=== PATIENT | female | born 1935 | race Native Hawaiian/Other Pacific Islander ===

== ENCOUNTER → 2022-02-05 | Outpatient (CLI) | payer OTHER ==
[2022-02-10 14:09] LABS: M-SPIKE, % Not Observed % (Not Observed); PROTEIN,TOTAL,URINE <4.0 mg/dL (Not Estab.)
== END | disposition home or self-care (01) ==
LOC: LAB SHORT 11:39 → LAB 11:39 → LAB FUT 01-26 14:45
PROVIDERS: Internal Medicine Nephrology
DX: N18.32 Chronic kidney disease, stage 3b (principal)
CPT/HCPCS: 84156; 84166

== ENCOUNTER 2023-02-02 11:15 | Inpatient (IN) | payer OTHER ==
[~2023-02-02] VITALS: Ht 152.4 cm; Wt 55.3 kg
[2023-02-02] MEDS ORDERED: AMLODIPINE BESYL5 MG PO (11:38)
[2023-02-02] MEDS ORDERED: CARVEDILOL3.125 MG PO (11:38)
[2023-02-02] MEDS ORDERED: ATORVASTATIN 10MG (11:38)
[2023-02-02 19:16] VITALS: BP 161/58
--- NOTE | 2023-02-02 23:09 | NUR ---
PT stated that right arm was painful, MEDICAL REPRESENTATIVE notified the RN.
[2023-02-03 03:18] VITALS: BP 147/71
--- NOTE | 2023-02-03 05:58 | NUR ---
SHIFT SUMMARY A/OX4, 1P ASSIST TO BSC. SPLINT TO R. WRIST. C/O PAIN TO THE AREA, MEDICATED WITH 50MCG FENTANYL. NPO SINCE MIDNIGHT. VSS, NO ACUTE CHANGES AT THIS TIME. BED IN LOWEST POSITION WITH CALL LIGHT IN REACH. WILL CONTINUE TO MONITOR AND REPORT TO ONCOMING RN.
[2023-02-03 07:16] VITALS: BP 151/59
[2023-02-03 08:45] LABS: Albumin, Blood 3.3 g/dL (3.4-5.0); Bilirubin, Total 0.6 mg/dL (0.1-1.0); Calcium, Blood 9.4 mg/dL (8.5-10.1); Creatinine, Blood 1.2 mg/dL (0.40-1.00); Globulin, Blood 3.2 g/dL (2.2-4.0); Potassium, Blood 4.1 mmol/L (3.5-5.5); Total Protein, Blood 6.5 g/dL (6.4-8.2)
[2023-02-03 15:17] VITALS: BP 159/57
--- NOTE | 2023-02-03 17:46 | NUR ---
SHIFT SUMMARY NO ACUTE CHANGES THIS SHIFT. PATIENT SURGERY DELAYED UNTIL TOMORROW D/T OR AVAILABILTY. PAIN MANAGED WELL PER EMAR. SPLINT TO R ARM REMAINS IN PLACE, C/D/I. PATIENT WORKED WITH PHYSICAL THERAPY, UP TO CHAIR, 1P MIN ASSIST WITH PLATFORM WALKER. TOLERATING PO DIET WELL, DENIES N/V. CALLS APPROPRIATERLY, IN REACH. WILL REPORT TO ONCOMING RN AT 1900.
[2023-02-03 19:13] VITALS: BP 157/66
[2023-02-04] VITALS (16 sets, daily range): BP systolic 104–170; BP diastolic 65–87
--- NOTE | 2023-02-04 04:24 | NUR ---
SUMMARY NO ACUTE EVENTS THIS SHIFT, PATIENT IS AOX4, AND NPO STATUS FOR ORIF OF R RADIUS. SPLINT TO R ARM IS C/D/I. ABLE TO MOVE ALL EXT'S. MEDICATED FOR PAIN AND MANAGED WELL. ICE PACK ON R ARM ELEVATED ON PILLOWS. PATIENT IS A SBA ASSIST TO BSC, VOIDING WELL. IV FLUIDS INFUSING. PATIENT CALLS APPROPRIATELY. BED IN LOWEST POSITION, CALL LIGHT IN REACH, VSS. WILL REPORT TO DAY RN.
--- NOTE | 2023-02-04 10:01 | NUR ---
PT TAKEN TO DAY SURGERY AT THIS TIME. PT ALERT AND ORIENTED UPON LEAVING THE ROOM. DAY SURGERY RN NOTIFIED THAT PT WILL NEED HER PRE OP WASH, PERIDEX AND NOSIN. SHE WAS ALSO NOTIFIED THAT IV INFILTRATED AND PT WILL NEED A NEW IV. PHONE NUMBER FOR PATIENT'S DAUGHTER WAS PROVIDED FOR DAY SURGERY. MESSAGE LEFT FOR PATIENT'S DAUGHTER NOTIFYING HER THAT THE PATIENT LEFT FOR SURGERY.
--- NOTE | 2023-02-04 14:30 | NUR ---
PT RETURNED TO THE ROOM FROM PACU AT 1400. PT DROWSY BUT ORIENTED. PT DENIES PAIN AND RESTING COMFORTABLE. VSS.
--- NOTE | 2023-02-04 17:39 | NUR ---
SHIFT SUMMARY PT IS POD#0 FROM R RADIUS ORIF. PT REPORTS PAIN BUT FALLS ASLEEP EVIDENCED BY LIGHT SNORING WHEN SHE IS LEFT TO REST. R ARM ELEVATED ON PILLOWS AND ICE IN PLACE. R HAND IS SWOLLEN POST OP BUT PT APPEARS TO HAVE BETTER MOBILITY OF FINGERS AFTER SURGERY. CAP REFIL WNL. STILL UNABLE TO ASSESS PULSES R/T SPLINT PLACEMENT.
[2023-02-05 01:21] VITALS: BP 129/83
[2023-02-05 05:24] VITALS: BP 143/74
--- NOTE | 2023-02-05 07:21 | NUR ---
summary twice this shift pt slept solid and woke confused not to being in hospital, but tangled all of her cords,unclipped call light from gown and tangle it in phone and iv cords accidentally dislodging 2 ivs.pt calling out saying she was "stuck" denied trying to get out of bed, but still called being in bed stating she was restless? pt with no known hx dementia,however reported to me full sensation to fingers this am, now reports fingers as "numb,although can wiggle fingers slowly,refill wnl and warm.when asked directly if she can feel fingers pt states she can feel them, but returns to "numb" ice was kept to arm last night with decrease in swelling to hand and report of improved pain control. pt ambulatory with assist to bsc for void without diff.
[2023-02-05 07:22] VITALS: BP 156/74
[2023-02-05 08:48] LABS: Mean Corpuscular HGB 31.3 pg (26.0-34.0); Mean Corpuscular HGB Conc 35.1 g/dL (31.5-36.5); Mean Corpuscular Volume 89 fL (80-100); Mean Platelet Volume 10.3 fL (9.1-12.4); Platelet Count 259 K/mm3 (150-400); RDW Coefficient Variation 12.2 % (11.7-14.2); RDW Standard Deviation 40.1 fL (35.1-46.3); Red Blood Cell Count 4.16 M/mm3 (3.80-5.20); White Blood Cell Count 17.66 K/mm3 (4.00-11.30)
--- NOTE | 2023-02-05 11:58 | NUR ---
AMBULATING DOWN THE [place] W/ PHYS. THERAPY.
[2023-02-05 14:39] VITALS: BP 147/76
--- NOTE | 2023-02-05 17:08 | NUR ---
SUMMARY POD 1 R RADIAL ORIF, REPORTS HAVING MINIMAL PAIN ON R ARM, AMBULATING WITH STANDBY ASSIST AND PLATFORM WALKER, PT NEEDS CONSTANT VERBAL CUES FOR SAFETY, PT/OT EVAL TODAY, REC. HOME W/ HOME HEALTH, PLEASAND AND COOPERATIVE, USING CALL LIGHT APPROPRIATELY, NO ACUTE CHANGES THIS SHIFT.
[2023-02-05 19:38] VITALS: BP 162/62
[2023-02-06 05:05] LABS: Hematocrit 30.6 % (33.0-51.0); Hemoglobin 10.5 g/dL (11.5-16.0); Mean Corpuscular HGB 31.4 pg (26.0-34.0); Mean Corpuscular HGB Conc 34.3 g/dL (31.5-36.5); Mean Corpuscular Volume 92 fL (80-100); Mean Platelet Volume 10.6 fL (9.1-12.4); Platelet Count 218 K/mm3 (150-400); RDW Coefficient Variation 12.8 % (11.7-14.2); RDW Standard Deviation 42.4 fL (35.1-46.3); Red Blood Cell Count 3.34 M/mm3 (3.80-5.20); White Blood Cell Count 10.14 K/mm3 (4.00-11.30)
[2023-02-06 05:22] VITALS: BP 159/67
[2023-02-06 07:09] VITALS: BP 162/61
--- NOTE | 2023-02-06 07:46 | NUR ---
SHIFT SUMMARY AOX4 T/O NIGHT. VSS. POD 2-R RADIAL ORIF. SPLINT & PILI WRAP IN PLACE. PT ABLE TO SLIGHTLY WIGGLE R HAND FINGERS, R HAND c DEPENDENT & NONPITTING EDEMA, PER DAY SHIFT ON PREVIOUS DAY SWELLING HAS DECREASED. CAP REFILL <3 SEC. UNABLE TO FEEL PULSE R/T SPLINT. PT REPORTED 2-3/10 PAIN IN R WRIST, DENIED NEED FOR PAIN MEDS T/O NIGHT, USED ICE FOR PAIN RELIEF. NON-WT BEARING R ARM, 1P ASSIST c TRANSFER c PLATFORM WALKER. CALL LIGHT & BED ALARM IN PLACE FOR SAFETY.
[2023-02-06 14:46] VITALS: BP 161/71
--- NOTE | 2023-02-06 18:05 | NUR ---
SHIFT SUMMARY PT HAS DONE WELL T/O SHIFT. UP TO CHAIR SINCE BREAKFAST. PT MEDICATED FOR PAIN ONCE. SOME MILD NAUSEA THIS EVENING, WILL ADMINISTER [facility]DT [facility] ONCE ORDER CROSSES PHARMACY. PLAN TO DC HOME TOMORROW W/HH
[2023-02-06 19:09] VITALS: BP 149/69
[2023-02-07 02:34] VITALS: BP 157/65
[2023-02-07 05:01] LABS: Hematocrit 32.1 % (33.0-51.0); Mean Corpuscular HGB 31.4 pg (26.0-34.0); Mean Corpuscular HGB Conc 34.3 g/dL (31.5-36.5); Mean Corpuscular Volume 92 fL (80-100); Mean Platelet Volume 10.3 fL (9.1-12.4); Platelet Count 225 K/mm3 (150-400); RDW Coefficient Variation 12.7 % (11.7-14.2); RDW Standard Deviation 42.6 fL (35.1-46.3); White Blood Cell Count 8.76 K/mm3 (4.00-11.30)
--- NOTE | 2023-02-07 05:47 | NUR ---
SHIFT SUMMARY POD 3-R RADIAL ORIF. SPLINT & PILI WRAP IN PLACE, C/D/I. DENIED NEED FOR PAIN MEDICATION, ABLE TO REST WELL T/O NIGHT. AOX4. SLIGHTLY IRRITABLE @HS, R/T STILL BEING IN HOSPITAL & WANTING TO DC OTHERWISE HAS BEEN PLEASENT & COOPERATIVE c CARE. DENIES N/V. UP 1P ASSIST c PLATFORM FWW, NON-WT BEARING R ARM. CALL LIGHT IN REACH & PT ABLE TO MAKE NEEDS KNOWN.
[2023-02-07 08:00] VITALS: BP 171/61
[2023-02-07] MEDS ORDERED: AMLO10 PO (11:16)
[2023-02-07] MEDS ORDERED: ATOR10 PO (11:16)
[2023-02-07] MEDS ORDERED: OXYC5 PO (11:17)
[2023-02-07] MEDS ORDERED: DOCU100 PO (11:17)
[2023-02-07] MEDS ORDERED: CARV3.125 PO (11:17)
--- NOTE | 2023-02-07 14:00 | NUR ---
DISCHARGE NOTE: PATIENT AND PATIENTS DAUGHTER WERE EDUCATED ON DISCHARGE INSTRUCTIONS. BOTH VERBALIZED UNDERSTANDING OF INSTRUCTIONS AND HAD NO FURTHER QUESTIONS AT THIS TIME. HARD PERSCRIPTION WAS GIVEN TO DAUGHTER WHO PUT IT IN THE DISCHARGE INSTRUCTIONS FOLDER. OTHER PERSCRIPTIONS WERE SENT TO PATIENTS PREFERRED PHARMACY WHICH IS [facility]. PATIENT IS A&OX4. VS ARE WNL AND IS ON RA. PAIN IS MANAGED WITH ORAL PAIN MEDICATIONS. HER RIGHT ARM HAS A SPLINT AND PILI WRAP THAT IS C/D/I. PATIENT DENIES NUMBNESS OR TINGLING IN ALL EXTREMITIES. SHE IS ABLE TO MOVE ALL FINGERS AND TOES WHEN ASKED. SHE IS A SBA WITH HER FWW WITH ARM REST THAT IS BEING SENT HOME WITH HER. PATIENT IS TOLERATING PO INTAKE AND IS VOIDING. PATIENT IS DRESSED AND HAS ITEMS IN THE ROOM GATHERED. SHE WAS JUST WHEELCHAIRED OUT TO HER DAUGHTERS CAR TO BE TAKEN HOME.
== END 2023-02-07 14:05 | disposition home or self-care (01) | DRG 512 ==
LOC: ER 11:15 → SURS 18:02
PROVIDERS: Anesthesiology; Internal Medicine; ADMIT Internal Medicine
PROC: 2W3CX1Z Immobilization of Right Lower Arm using Splint (ICD-10-PCS; 2023-02-02)
PROC: 3E0 Administration, Physiological Systems and Anatomical Regions, Introduction (ICD-10-PCS; 2023-02-02)
PROC: 0PSH04Z Reposition Right Radius with Internal Fixation Device, Open Approach (ICD-10-PCS; principal; 2023-02-05)
DX: S59.201A Unspecified physeal fracture of lower end of radius, right arm, initial encounter for closed fracture (principal); I12.9 Hypertensive chronic kidney disease with stage 1 through stage 4 chronic kidney disease, or unspecified chronic kidney disease; N18.9 Chronic kidney disease, unspecified; G20 Parkinson's disease; W18.30XA Fall on same level, unspecified, initial encounter; E78.00 Pure hypercholesterolemia, unspecified; S60.811A Abrasion of right wrist, initial encounter; J45.20 Mild intermittent asthma, uncomplicated; D72.829 Elevated white blood cell count, unspecified; D64.9 Anemia, unspecified; Z88.0 Allergy status to penicillin; Z88.2 Allergy status to sulfonamides; Z95.0 Presence of cardiac pacemaker; Z79.899 Other long term (current) drug therapy; Z86.79 Personal history of other diseases of the circulatory system; Z90.710 Acquired absence of both cervix and uterus; Z90.10 Acquired absence of unspecified breast and nipple; Z86.718 Personal history of other venous thrombosis and embolism
CPT/HCPCS: 25605; 36415; 73070; 73090; 73100; 73110; 73120; 80053; 85027; 90471; 90714; 93005; 93010; 94760; 96374-59; 96375-59; 97110; 97116; 97162; 97166; 97530; 97535; 99285-25; A9270; C1713; J0690; J1100; J1650; J1885; J2250; J2270; J2405; J2704; J3010; J7030